=== PATIENT | female | born 1950 | race Caucasian/White ===

== ENCOUNTER 2022-06-29 06:58 | Day surgery (SDC) | payer MEDICAID ==
[~2022-06-29] VITALS: Ht 160 cm; Wt 74.8 kg
[2022-06-29] MEDS ORDERED: fentaNYL CITRATE/PF 100 MCG/2 ML AMP ONE (09:23)
[2022-06-29] MEDS ORDERED: MIDAZOLAM HCL 5 MG/5 ML VIAL ONE (09:24)
[2022-06-30 15:07] VITALS: BP_SYST 154
== END 2022-06-29 10:35 | disposition home or self-care (01) ==
LOC: SDS 06:58 → SMU 06:59 → SDS 10:35
PROVIDERS: ATTEND Internal Medicine
DX: R19.5 Other fecal abnormalities (principal); D12.4 Benign neoplasm of descending colon; D12.5 Benign neoplasm of sigmoid colon; K64.8 Other hemorrhoids; I10 Essential (primary) hypertension; E11.9 Type 2 diabetes mellitus without complications; E78.5 Hyperlipidemia, unspecified; Z79.82 Long term (current) use of aspirin; Z79.899 Other long term (current) drug therapy; Z20.822 Contact with and (suspected) exposure to COVID-19
CPT/HCPCS: 36415 ×2; 45385; 87426; 82962; 88305; 99152; U0003; G0378; J2250; J3010; 45384